=== PATIENT | female | born 2000 | race Two or more races ===

== ENCOUNTER 2025-05-19 17:02 | Emergency (ER) | payer OTHER, SELFPAY ==
[2025-05-19 17:45] VITALS: BP 110/85; PULSE 79; RESP 16; TEMP 36.4; O2SAT 100
--- NOTE | 2025-05-19 18:17 | ED_ITS ---
HPI - Dizziness General Chief Complaint: Dizziness Stated Complaint: FEVER/CHILLS/HEADACHE/TIRED/DIZZY Time Seen by Provider: 05/19/25 18:17 Source: patient Mode of arrival: ambulatory Limitations: no limitations History of Present Illness HPI Narrative: 25-year-old female presented for complaint of fatigue and intermittent dizziness for 5 days. She said she woke up today feeling worse. Has had headache for 2 d ays. Endorses feeling chills today. Denies shortness of breath, wheezing, vomiting or diarrhea. Not taking anything for symptoms. Related Data Home Medications ?Medication ?Instructions ?Recorded ?Confirmed ?Last Taken ?Type No Home Medications 05/19/25 05/19/25 U nknown History Allergies Allergy/AdvReac Type Severity Reaction Status Date / Time No Known Allergies Allergy Verified 05/19/25 17:43 Review of Systems Review of Systems: ROS per HPI All systems reviewed & are unremarkable except as noted in HPI and below PMFSH Comments At time of signature, I have reviewed and agree with nursing past medical, surgical, social and family history unless otherwise noted. Please see nursing chart for further information. There is no relevant family history pertinent to the presenting complaint Exam Narrative: GENERAL: Well-appearing, well-nourished, and in no acute distress. HEAD: Normocephalic, atraumatic. EYES: EOMI. No redness or drainage. Conjunctivae normal. ENT: Mucous membranes pink and moist. No rhinorrhea. TMs normal bilaterally. Throat normal. Uvula midline. NECK: Normal AROM. Supple. CHEST: No respiratory distress. Clear to auscultation. HEART: Regular rate and rhythm. No murmur appreciated. Normal peripheral pulses. SKIN: Warm, dry, no rash. Capillary refill normal. Normal skin turgor. NEURO: No focal deficits. Alert and oriented x3. Gait steady. PSYCH: Normal affect. Course Course Emergency Course: Patient is aware of diagnosis, understands and agrees to treatment plan. Anticipatory guidance given. Patient agrees to follow-up as directed and is aware of reasons to seek care at the emergency department. Portions of this record may have been created with voice recognition software Level of Care: Express Care Visit Vital Signs Vital signs: Vital Signs Temperature 97.6 F 05/19/25 17:45 Pulse Rate 79 05/19/25 17:45 Respiratory Rate 16 05/19/25 17:45 Blood Pressure 110/85 05/19/25 17:45 Pulse Oximetry 100 05/19/25 17:45 Temperature 97.6 F 05/19/25 17:45 Pulse Rate 79 05/19/25 17:45 Respiratory Rate 16 05/19/25 17:45 Blood Pressure 110/85 05/19/25 17:45 Pulse Oximetry 100 05/19/25 17:45 MDM - Dizziness MDM Narrative Medical decision making narrative: Discussed physical exam findings. Negative flu and COVID. Discussed possible etiologies, she will establish with a PCP Advised supportive measures and signs/symptoms to go to the ER. Pt is appropriate for outpt treatment and f/u. Differential Diagnosis Differential diagnosis: Likely adverse reaction to drug, benign paroxysmal positional vertigo, orthostatic hypotension, acute vestibular neuronitis and other (anemia, dehydration, sepsis, arrhythmia, labyrinthitis, vestibular neuritis, sinusitis, CVA, migraine) Discharge Plan Discharge Clinical Impression: Viral infection Patient Disposition: Home Condition: Stable Instructions: Antibiotic Form, Dizziness (ED) Additional Instructions: COVID and flu negative Change positions slowly Sit down immediately if you feel dizzy or lightheaded Increase water intake, stay hydrated Watch for worsening symptoms (headache, vision changes, dizziness that does not go away, chest pain, heart racing, sweating) Go to the ER for these symptoms or any other concerns. Follow-up with your primary care provider, call to schedule appointment Patient Language: Chinese Prescriptions: No Action No Home Medications Follow-up/Referrals: PHYSICIAN,PEDIATRIC SPORTS MEDICINE SPECIALIST [Primary Care Provider, Internal Medicine] Time of Disposition: 18:54
[2025-05-19 18:58] LABS: EDCOVIDSCREEN Negative (Negative); EDINFLUASCREEN Negative (Negative); EDINFLUBSCREEN Negative (Negative)
== END 2025-05-19 19:00 | disposition home or self-care (01) ==
PROVIDERS: Emergency Provider Nurse Practitioner Family
DX: B34.9 Viral infection, unspecified (principal); Z20.822 Contact with and (suspected) exposure to COVID-19
CPT/HCPCS: 87426; 87804; 99202; G0463